=== PATIENT | male | born 1980 | race Caucasian/White ===

== ENCOUNTER 2023-04-17 20:55 | Emergency (ER) | payer OTHER ==
[2023-04-17 20:59] VITALS: BP 115/69; PULSE 88; RESP 18; TEMP 97.3; BMI 24.3
[2023-04-17 22:11] LABS: THROAT:GRP A STREP NOT DETECTED (NOTDETECTED)
== END 2023-04-17 22:52 | disposition home or self-care (01) ==
LOC: JERFT 20:55
DX: R05.9 Cough, unspecified (principal); R09.81 Nasal congestion; R09.82 Postnasal drip; J06.9 Acute upper respiratory infection, unspecified; B97.89 Other viral agents as the cause of diseases classified elsewhere; Z20.822 Contact with and (suspected) exposure to COVID-19
CPT/HCPCS: 0241U-QW; 87651; 99283-25